=== PATIENT | male | born 1995 | race African-American/Black ===

== ENCOUNTER 2023-10-15 13:35 | Emergency (ER) | payer SELFPAY ==
[2023-10-15 13:40] VITALS: BP 122/70; PULSE 66; RESP 18; TEMP 98; BMI 23.7
== END 2023-10-15 16:53 | disposition home or self-care (01) ==
LOC: JERFT 13:35
DX: M50.30 Other cervical disc degeneration, unspecified cervical region (principal); M54.2 Cervicalgia; R51.9 Headache, unspecified
CPT/HCPCS: 70450-TC; 72125-TC; 99284-25